=== PATIENT | male | born 1960 | race Caucasian/White ===

== ENCOUNTER 2018-11-02 05:50 | Day surgery (SDC) | payer OTHER ==
--- NOTE | 2018-11-01 19:14 | Pre-Procedure Note/Attestation ---
Pre-Procedure Note/Attestation Complete Prior to Procedure Planned Procedure: not applicable Procedure Narrative: 1. ORIF nasal fracture 2. Septoplasty 3. Submucous resection right inferior turbinate 4. Submucous resection left inferior turbinate. Indications for Procedure Pre-Operative Diagnosis: 1. Nasal fracture 2. Nasal septal deviation 3. Hypertrophied right inferior turbinate 4. Hypertrophied left inferior turbinate Attestation I attest that I discussed the nature of the procedure; its benefits; risks and complications; and alternatives (and the risks and benefits of such alternatives ), prior to the procedure, with the patient (or the patient's legal indirect sales representative). I attest that, if there was a reasonable possibility of needing a blood transfusion, the patient (or the patient's legal indirect sales representative) was given the [facility] standardized written summary, pursuant to the [place] Blood Safety Act ([place] Health and Safety Code # 1645, as amended). I attest that I re-evaluated the patient just prior to the surgery and that there has been no change in the patient's H&P. Done by PMD at [employer] sent to pre op previously. They are approved by me after review. Miles Howard MD Nov 01, 2018 19:14
--- NOTE | 2018-11-01 19:15 | Brief Operative Note ---
Immediate Post Operative Note Operative Note Pre-op Diagnosis: 1. Nasal fracture 2. Nasal septal deviation 3. Hypertrophied right inferior turbinate 4. Hypertrophied left inferior turbinate Procedure: 1. ORIF nasal fracture 2. Septoplasty 3. Submucous resection right inferior turbinate 4. Submucous resection left inferior turbinate. Post-op Diagnosis: same as pre-op Surgeon: Miles Howard Film Or Videotape Editor: none Additional Surgeons: none Anesthesiologist: Nando Anesthesia: general Specimen: yes - Gross nasal septum cartilage Complications: none Condition: stable Fluids: D5LR Estimated Blood Loss: volume - 25 cc Drains: none Packing: Larissa nasal gel Implant(s) used?: No Miles Howard MD Nov 01, 2018 19:15
--- NOTE | 2018-11-01 19:18 | Discharge Instructions ---
Discharge Instructions Discharge Instructions Follow up with: pt already has post op appt next week Diet: regular Resume Normal Activity?: No Activity: ambulate Pneumonia Vaccine: pt refused vaccine Influenza Vaccine (May to Oct): pt refused vaccine Follow Up Orders Pt has printed instructions which were reviewed with him during his pre op visit last week. He also has post op meds. Return to Work/School on: Nov 16, 2018 Special Instructions ice to face x 8 hours. For Surgical Patients Dressing Care: may change May shower: No For Congestive Heart Failure Reminder Report to your physician any weight gain of 5 pounds or more in one week. Miles Howard MD Nov 01, 2018 19:18
--- NOTE | 2018-11-01 19:19 | History & Physical ---
History and Physical History & Physicial I have reviewed and agree with outside H/P by his PMD which was sent to the pre op at [facility] within the last week along wit labs, EKG and CXR. Miles Howard MD Nov 01, 2018 19:19
[2018-11-02] VITALS (10 sets, daily range): BP systolic 102–135; BP diastolic 61–91
[~2018-11-02] VITALS: Ht 180.3 cm; Wt 93.0 kg
[~2018-11-02 05:50] MED LIST: AMOXICILLIN500 MG ORAL; DAILY MULTIVIT1 EAC3 PO; MOVE FREE JOIN1 EACH PO; TRAMADOL HCL100 M2 ORAL
[2018-11-02] MEDS ORDERED: Cocaine HCl 4% 4ml vial TOPIC ONE (07:02)
[2018-11-02] MEDS ORDERED: Lidocaine 1% 10mg/ml/Epi 0.005mg/ml 30ml vial INJ ONE (07:03)
[2018-11-02] MEDS ORDERED: Bupivacaine w/Epi 0.5% 30ml Vial INJ ONE (07:03)
[2018-11-02] MEDS ORDERED: fentaNYL 100 mcg/2 mL IV ONE (07:14)
[2018-11-02] MEDS ORDERED: Propofol 200mg/20ml IV ONE (07:14)
[2018-11-02] MEDS ORDERED: Lidocaine 1% MPF 10mg/ml 5ml ONE (07:14)
[2018-11-02] MEDS ORDERED: Lidocaine 1% Plain 30 ml INJ ONE (07:15)
[2018-11-02] MEDS ORDERED: Dexamethasone 4mg/ml vial ONE (07:15)
[2018-11-02] MEDS ORDERED: LR 1000ml 1,000 ML IVLG SCH (07:26)
--- NOTE | 2018-11-02 07:26 | Anethesia Preoperative Eval ---
Anesthesia Pre-op PMH/ROS General Date of Evaluation: Nov 02, 2018 Anesthesiologist: Nando ASA Score: ASA 2 Mallampati Score Class I : Soft palate, uvula, fauces, pillars visible Class II: Soft palate, uvula, fauces visible Class III: Soft palate, base of uvula visible Class IV: Only hard plate visible Mallampati Classification: Class II Surgeon: Lee Diagnosis: Septal deviation Surgical Procedure: septoplasty smr turbs Anesthesia History: none Family History: no anesthesia problems Allergies: Coded Allergies: No Known Allergies (Unverified , 11/01/18) Medications: see eMAR Patient NPO?: Yes NPO Date: Nov 01, 2018 NPO Time: 21:00 Past Medical History Cardiovascular: Denies: HTN, CAD, [place], valve dz, arrhythmia, other Pulmonary: Denies: asthma, COPD, ROBERT, other Gastrointestinal/Genitourinary: Denies: GERD, CRI, ESRD, other Neurologic/Psychiatric: Reports: other - tinnitus; Denies: dementia, CVA, depression/anxiety, TIA Endocrine: Denies: DM, hypothyroidism, steroids, other HEENT: Denies: cataract (L), cataract (R), glaucoma, [place] (L), [place] (R), other Hematology/Immune: Denies: anemia, DVT, bleeding disorder, other Musculoskeletal/Integumentary: Denies: OA, RA, DJD, DDD, edema, other Other: obesity, other - allergic rhinitis PSxH Narrative: RIHR, right wrist cystectomy Anesthesia Pre-op Phys. Exam Physician Exam Last Vital Signs Date Time Temp Pulse Resp B/P (MAP) Pulse Ox O2 Delivery O2 Flow Rate FiO2 11/02/18 06:21 Room Air 11/02/18 06:19 98.1 63 18 125/76 98 Constitutional: NAD Cardiovascular: RRR Respiratory: CTA Airway Exam Mallampati Score: Class II MO: full ROM: full Teeth: intact Anesthesia Pre-op A/P Labs see chart Studies Pre-op Studies: EKG - sr Risk Assessment & Plan Assessment: ASA II Plan: GA Status Change Before Surgery: No Pre-Antibiotics Drug: Ancef 2g Given Within 1 Hr of Incision: Yes Inga De Jesus MD Nov 02, 2018 07:26
[2018-11-02] MEDS ORDERED: DiphenhydrAMINE 50mg/ml Inj IVP PRN (07:30)
[2018-11-02] MEDS ORDERED: STERILE WATER FOR INJECTION INJ ONE (07:30)
[2018-11-02] MEDS ORDERED: LORazepam Inj 2mg/ml 1ml IV PRN (07:30)
[2018-11-02] MEDS ORDERED: Midazolam 2mg/2ml Inj IVP PRN (07:30)
[2018-11-02] MEDS ORDERED: Hydromorphone 0.5mg/0.5ml inj IVP PRN (07:30)
[2018-11-02] MEDS ORDERED: NS Irrig 1000ml ONE (07:30)
[2018-11-02] MEDS ORDERED: Metoclopramide 10mg/2ml Inj IVP PRN ×2 (07:30→08:30)
[2018-11-02] MEDS ORDERED: LR 1000ml ONE (07:30)
[2018-11-02] MEDS ORDERED: fentaNYL 100 mcg/2 mL IV PRN (07:30)
--- NOTE | 2018-11-02 08:24 | Immediate Post-Op Evaluation ---
Immediate Post-Op Evalulation Immediate Post-Op Evalulation Procedure: Septoplasty, Nasal ORIF Date of Evaluation: Nov 02, 2018 Time of Evaluation: 08:26 IV Fluids: 800 Blood Products: 0 Estimated Blood Loss: 25 Urinary Output: 0 Blood Pressure Systolic: 107 Blood Pressure Diastolic: 64 Pulse Rate: 67 Respiratory Rate: 17 O2 Sat by Pulse Oximetry: 95 Temperature (Fahrenheit): 98.9 Pain Score (1-10): 0 Nausea: No Vomiting: No Complications 0 Patient Status: awake, reacts, patent, none Hydration Status: adequate Drug: Ancef 2g Given Within 1 Hr of Incision: Yes Time Given: 07:35 Inga De Jesus MD Nov 02, 2018 08:24
--- NOTE | 2018-11-02 08:24 | 48 Hour Post Anesthesia Eval ---
Post Anesthesia Evaluation Procedure: Septoplasty, Nasal ORIF Date of Evaluation: Nov 02, 2018 Airway: patent Nausea: No Vomiting: No Pain Intensity: 0 Hydration Status: adequate Cardiopulmonary Status: at [id number] Mental Status/LOC: patient returned to baseline Post-Anesthesia Complications: 0 Follow-up care needed: ready to discharge Inga De Jesus MD Nov 02, 2018 08:24
[2018-11-02] MEDS ORDERED: HYDROmorphone 1mg/ml Carpuject SUBQ PRN (08:30)
[2018-11-02] MEDS ORDERED: HYDROcodone/Acetamin 5/325 tab ORAL PRN (08:30)
[2018-11-02] MEDS ORDERED: HYDROcodone/Acetamin 5/325 tab ONE (09:58)
--- NOTE | 2018-11-02 19:45 | Operative Note - Dictated ---
DATE OF OPERATION: 11/02/2018 SURGEON: Miles Howard M.D. ANESTHESIOLOGIST: nIga Collier M.D. ANESTHESIA: LMA general anesthesia as well as 25 mL of 1% lidocaine with 1:100,000 epinephrine and Sensorcaine 0.5% with 1:200,000 epinephrine. Additionally, 4 mL of 4% topical cocaine were placed in the nose, 4 nasal pledgets, 2 on either nostril accounted for at the end of the case. PREOPERATIVE DIAGNOSES: Nasal fracture, septal deviation, hypertrophied right inferior turbinate, hypertrophied left inferior turbinate. POSTOPERATIVE DIAGNOSES: Nasal fracture, septal deviation, hypertrophied right inferior turbinate, hypertrophied left inferior turbinate. FINDINGS: Septum deviated off to the left, hypertrophied turbinates, and nasal deformity secondary to injury, bump on the nose. TECHNIQUE: The patient prepped and draped in usual manner. A time-out was performed. All agreed as to the equipment and procedures to be done as well as the 2 g of Ancef and Decadron preop. Initially, I injected the nose with the aforementioned lidocaine, Marcaine, and epinephrine mixture and placed the nasal pledgets. I then proceeded to make a [place] incision on the left side of the nose with a 15 blade. Elevated with a dental elevator submucosally on either side. I removed the lower 4 mm of the septal cartilage, 1 cm superior to the inferior margin. A cut was made superiorly and inferiorly and then removed with a straight Velvet. This area was sewn back together with two 4-0 plain sutures. I then addressed the right inferior turbinate. Incision made with a 15-blade. Two passes with a radiofrequency wand, setting of 6 coated with saline x10 seconds. I then outfractured the inferior turbinate. I then turned my attention to the contralateral inferior turbinate. Incision made with a 15-blade. Once again radiofrequency wand setting of 6, 10 seconds after coating with saline gel and then outfractured with a Boies elevator. I then made between the cartilage and lower lateral nares incisions. I then elevated over the anterior nose with an . I then used a gouge osteotome to remove the bump in the anterior nose. I then used a straight guarded osteotome to the lower lateral osteotomies bilaterally. I then used both an Korey and a Healy to make sure there was no greenstick fracture and the nasal bone was completely free, which it was. This was then put back into normal anatomic position. Tape and stent was placed. The side of the nose was suctioned out and 1 syringe of Stammberger nasal gel was placed in the nose. Mustache dressing was placed. ESTIMATED BLOOD LOSS: 25 mL. COMPLICATIONS: None. DRAINS: None. COUNTS: Sponge and needle count was correct and concurred by all in the room. The patient awake, alert, and stable prior to transfer to the recovery room. Miles Howard M.D. DR: MICHAEL JOB#: [id number] CC:
[2018-11-05] MEDS ORDERED: Dexamethasone 4mg/ml vial IVP ONE ×2 (07:00)
[2018-11-05] MEDS ORDERED: ceFAZolin sod 1 GM in D5W 55 ML IV ONE ×4 (09:00)
== END 2018-11-02 11:00 | disposition home or self-care (01) ==
LOC: SUR 05:50
DX: J34.2 Deviated nasal septum (principal); J34.3 Hypertrophy of nasal turbinates; S02.2XXA Fracture of nasal bones, initial encounter for closed fracture; X58.XXXA Exposure to other specified factors, initial encounter; Y92.9 Unspecified place or not applicable
CPT/HCPCS: 21325; 30140; 30520; J0690; J1100; J2001; J2250; J2405; J2704; J2765; J3010; 94003; 94150; A4216